=== PATIENT | male | born 1960 | race Caucasian/White ===

== ENCOUNTER 2018-06-30 09:16 | Day surgery (SDC) | payer BC ==
[2018-06-24 18:26] VITALS: BMI 26.4
--- NOTE | 2018-06-30 07:10 | HP ---
History & Physical Update - History History: No Change - Physical Physical: No Change - Assessment Assessment: No Change - Plan Plan: No Change (H&P completed by Dr. Hao Etienne on 06/24/18. No new complaints or medications. C/o LBP with LLE radiculopthy. Here today for elective L4-S1 laminectomy.)
[2018-06-30] MEDS ORDERED: GABAPENTIN 300 MG CAPSULE (FP) PO STA (09:45)
[2018-06-30] MEDS ORDERED: LIDOCAINE 1%/EPI 1:100000 (20 ML MULTI DOSE VIAL) ONE (09:50)
[2018-06-30] MEDS ORDERED: BUPIVACAINE HCL/PF 2.5 MG/ML - 30 ML VIAL IJ ONE (09:50)
[2018-06-30] MEDS ORDERED: methylPREDNISolone ACET (DEPO) 40 MG/1 ML VIAL ONE (09:50)
[2018-06-30] MEDS ORDERED: THROMBIN (RECOMBINANT) 5,000 UNIT VIAL TP ONE (09:50)
[2018-06-30] MEDS ORDERED: BUPIVACAINE HCL/PF (5 MG/ML) 30 ML VIAL IJ ONE (13:19)
[2018-06-30] MEDS ORDERED: MIDAZOLAM HCL 2 MG/2 ML SINGLE DOSE VIAL ONE ×2 (13:19→13:55)
[2018-06-30] MEDS ORDERED: DEXMEDETOMIDINE HCL 200 MCG/2 ML ML IVPB ONE (13:19)
[2018-06-30] MEDS ORDERED: LIDOCAINE 1%/EPI 1:100000 (20 ML MULTI DOSE VIAL) IJ ONE (13:30)
[2018-06-30] MEDS ORDERED: ePHEDrine SULFATE 50 MG/1 ML AMPULE ONE (13:52)
[2018-06-30] MEDS ORDERED: ceFAZolin SODIUM 1 GM VIAL ONE (13:56)
[2018-06-30] MEDS ORDERED: ONDANSETRON 4 MG/2 ML VIAL ONE (13:56)
[2018-06-30] MEDS ORDERED: DEXAMETHASONE SOD PHOSPHATE 4 MG/1 ML VIAL ONE (13:56)
[2018-06-30] MEDS ORDERED: THROMBIN (BOVINE) 5,000 UNIT VIAL TP ONE (14:19)
[2018-06-30] MEDS ORDERED: GELATIN SPONGE,ABSORBABLE 1 GM PACKET TP ONE (14:20)
[2018-06-30] MEDS ORDERED: methylPREDNISolone ACET (DEPO) 40 MG/1 ML VIAL NR ONE (14:51)
[2018-06-30] MEDS ORDERED: BUPIVACAINE HCL/PF 0.25% (2.5MG/ML) 10 ML VIAL IJ ONE (15:02)
--- NOTE | 2018-06-30 15:25 | OP ---
Operative Note - Note: Operative Date: 06/30/18 Pre-Operative Diagnosis: L4-S1 stenosis with radiculopathy Operation: L4-S1 bilateral laminectomy Post-Operative Diagnosis: Same as Pre-op Surgeon: Rodolfo Maldonado Professor Of Management: Dario Araya Anesthesia: Spinal Estimated Blood Loss (mls): 20 Fluid Volume Replaced (mls): 700 Operative Report Dictated: Yes
--- NOTE | 2018-06-30 15:26 | SURG ---
Surgery Sheet Catcher Note Sheet Catcher: Dario Araya PA-C Date of Service: 06/30/18 Diagnosis: L4-S1 stenosis with radiculopathy Procedure: L4-S1 bilateral laminectomy I was present for the entirety of the operative procedure. For further detail, please refer to operative report. Visit type - Case Type Case Type: Scheduled - New patient This patient is new to me today: Yes Date on this admission: 06/30/18
[2018-06-30] MEDS ORDERED: ONDANSETRON 4 MG/2 ML VIAL IVPUSH PRN (15:28)
[2018-06-30] MEDS ORDERED: PROMETHAZINE HCL 25 MG/1 ML VIAL IVPUSH PRN (15:28)
[2018-06-30] MEDS ORDERED: oxyCODONE HCL 5 MG TABLET PO PRN ×2 (15:49)
[2018-06-30 19:13] VITALS: PULSE 72
[2018-06-30 19:33] VITALS: BP 113/71; TEMP 97.7
--- NOTE | 2018-07-01 08:00 | OP ---
DATE OF OPERATION: 06/30/2018 PREOPERATIVE DIAGNOSIS: Spinal stenosis, L4 to S1. POSTOPERATIVE DIAGNOSIS: Spinal stenosis, L4 to S1. PROCEDURE PERFORMED: Laminectomy, L4-5, L5-S1. SURGEON: Rodolfo Maldonado MD DAY PORTER: SAUNDRA Liang ESTIMATED BLOOD LOSS: 50 mL INTRAVENOUS FLUIDS: Per Anesthesia. ANESTHESIA: Spinal/TLIP. COMPLICATIONS: None. DISPOSITION: Patient brought to the PACU in stable condition. INDICATION FOR SURGERY: The patient is a 58-year-old gentleman who has been suffering from pain from his back down his legs. X-rays and MRI were completed which noted that he had spinal stenosis from L4 to S1. He had gone through an exhaustive course of treatment for this, which included medications, physical therapy as well as injections. Unfortunately, his pain continued to persist despite all this. At this point, risks, benefits, and alternatives were discussed, and the patient consented to surgery. DESCRIPTION OF PROCEDURE: Patient was brought to the operating room by the anesthesia staff. After appropriate patient identification was performed, spinal anesthesia was given along with a TLIP block. Patient was able to position himself prone onto the Abundio frame with all areas of bony prominences well padded at this time. Two needles were placed into his back to elif off the L4 to S1 segments. X-ray was taken to confirm this as correct. Sturgis were removed, and 10 mL of lidocaine with epinephrine were injected in his back at this time. His back was prepped and draped in a sterile manner. At this point, timeout was completed. An incision was made from the top of L4 down to the bottom of S1. Dissection was carried down to the fascia. Fascia was then split open at this time, and appropriate retractors were then placed in. A spinal needle was placed onto the L4 lamina to elif off the L4-5 level. X-ray was taken to confirm this as correct. Needle was removed, and the interspinous ligament at L4-5 and L5-S1 was removed. The spinous process of L5 was removed. The lamina of L5 was removed. The flavum was removed. By the end of the procedure, the L5 and S1 nerve roots appeared to be well decompressed. All bleeding was well controlled at this time. Steroid was placed over the nerve root. FloSeal was placed over that. The fascia was closed with a No. 1 Vicryl suture. Subcutaneous tissues were closed with 2-0 Vicryl suture. Skin was closed with 3-0 Monocryl suture. Dermabond was applied. Steri-Strips were applied. A sterile dressing was applied. Patient was placed supine on the OR bed and brought to the PACU in stable condition. Chriss TILLEY/[id number]
== END 2018-06-30 19:50 | disposition home or self-care (01) ==
LOC: FASU 09:16
PROVIDERS: ATTEND Orthopaedic Surgery Orthopaedic Surgery of the Spine
PROC: 01NB0ZZ Release Lumbar Nerve, Open Approach (ICD-10-PCS; principal; 2018-06-30 11:30)
DX: M48.061 Spinal stenosis, lumbar region without neurogenic claudication (principal); M48.07 Spinal stenosis, lumbosacral region
CPT/HCPCS: 94760